=== PATIENT | male | born 2000 | race Caucasian/White ===

== ENCOUNTER 2024-03-03 00:17 | Emergency (ER) | payer OTHER, SELFPAY ==
[2024-03-03 00:21] VITALS: BP 141/62; PULSE 85; TEMP 36.5; O2SAT 100; BMI 23.4
--- NOTE | 2024-03-03 00:43 | ED_ITS ---
HPI HPI - Fall General Chief Complaint: Fall Stated Complaint: FALL Time Seen by Provider: 03/03/24 00:39 Source: patient Mode of arrival: ambulance Limitations: no limitations History of Present Illness HPI Narrative: patient states he was walking down the trail. Started raining and he slid down the ditch. injured his left ankle and schmitt. Injury about 5 hours ago. Was able to walk to the [employer] [place] [employer]. Now presents here with left ankle and schmitt pain. He denies other injury. 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 Common normals: normocephalic and head/scalp atraumatic Eye Common normals: EOMs intact bilaterally and conjunctivae normal Respiratory Common normals: normal respiratory effort, no retractions, no use of accessory muscles and clear to auscultation bilaterally Cardio Common normals: regular rate and regular rhythm Extremity Other: left ankle tender. mild swelling Neuro Common normals: oriented x3, CN's II-XII intact bilaterally, moves all extremities and no focal motor deficits Psych Appearance: grossly normal Course Vital Signs Vital signs: Vital Signs Temperature 97.7 F 03/03/24 00:21 Pulse Rate 85 03/03/24 00:21 Respiratory Rate 16 03/03/24 00:21 Blood Pressure 141/62 03/03/24 00:21 Pulse Oximetry 100 03/03/24 00:21 Oxygen Delivery Method Room Air 03/03/24 00:21 Temperature 97.9 F 03/03/24 05:04 Pulse Rate 82 03/03/24 05:04 Respiratory Rate 16 03/03/24 05:04 Blood Pressure 120/72 03/03/24 05:04 Pulse Oximetry 100 03/03/24 05:04 Oxygen Delivery Method Room Air 03/03/24 05:04 MDM - Fall MDM Narrative Medical decision making narrative: patient presents with complaint of left ankle /distal schmitt pain. he describes sliding and injuring his left ankle/schmitt. Does have mild tenderness. xrays neg for fracture patient treated with motrin and informed of working diagnosis of sprain left ankle/schmitt area Imaging Data Chest x-ray: Radiologist's impression: ITS Impressions Ankle X-Ray 03/03/24 01:11 IMPRESSION: 1. No acute fracture or dislocation of the left tibia or fibula or left ankle is seen. If pain persists, repeat radiographs are recommended in 7-10 days. 2. There are a couple small radiodensities within the soft tissues at the plantar aspect of the left calcaneal tuberosity. Please correlate for retained foreign bodies. Electronically authenticated by: Zohra RICHARDS Date: 03/03/2024 03:33 Tibia/Fibula X-Ray 03/03/24 01:11 IMPRESSION: 1. No acute fracture or dislocation of the left tibia or fibula or left ankle is seen. If pain persists, repeat radiographs are recommended in 7-10 days. 2. There are a couple small radiodensities within the soft tissues at the plantar aspect of the left calcaneal tuberosity. Please correlate for retained foreign bodies. Electronically authenticated by: Zohra RICHARDS Date: 03/03/2024 03:33 Discharge Plan Discharge Chief Complaint: Fall Clinical Impression: High ankle sprain of left lower extremity Patient Disposition: Home, Self-Care Prescriptions / Home Meds: No Action No Known Home Medications Print Language: Martiniquais Instructions: Sprain (ED), Leg Sprain (ED) Additional Instructions: continue motrin or similar for pain and follow up with your doctor next week for recheck Referrals: Physician,Non-Staff, MD [Primary Care Provider] - 1 week Discharge Date/Time: 03/03/24 05:13
--- NOTE | 2024-03-03 00:54 | PC.NURSE ---
Pt states that he left his apartment near the [facility] 4 days ago and is walking to [place]. He relates a hx of taking trazadone and risperidol a long time ago but I haven't taken these meds in years . He denies suicidal thoughts and homicidal thoughts. Relates that he is currently homeless. Upon removal of socks, it appears that he has trench foot--the skin is white on the sole and there appears to be breaks in the skin in between the toes. Currently, he is A & O x 4.
--- NOTE | 2024-03-03 01:11 | XR_ITS ---
The [address] [address] Patient Name: RIC BOCANEGRA MRN: [id number] date: 2000 Sex: M Assigned Patient Location: ER Current Patient Location: ER Accession/Order Number: [id number] Exam Date: 03/03/2024 01:17 Report Date: 03/03/2024 03:33 At the request of: IDRIS MCKEE Procedure: XR tibia fibula LT 2V EXAM: XR ankle LT min 3V, XR tibia fibula LT 2V HISTORY: injury COMPARISON: None. TECHNIQUE: 2 views of the left tibia and fibula and 3 views of the left ankle were obtained. FINDINGS: No acute fracture or dislocation is seen. The joint spaces are preserved. There is no significant left knee or left ankle joint effusion. The ankle mortise is congruent. There are a couple radiopaque densities within the soft tissues at the plantar aspect of the calcaneal tuberosity. XR/XR tibia fibula LT 2V IMPRESSION: 1. No acute fracture or dislocation of the left tibia or fibula or left ankle is seen. If pain persists, repeat radiographs are recommended in 7-10 days. 2. There are a couple small radiodensities within the soft tissues at the plantar aspect of the left calcaneal tuberosity. Please correlate for retained foreign bodies. Electronically authenticated by: Zohra RICHARDS Date: 03/03/2024 03:33
--- NOTE | 2024-03-03 01:11 | XR_ITS ---
The [address] [address] Patient Name: RIC BOCANEGRA MRN: [id number] date: 2000 Sex: M Assigned Patient Location: ER Current Patient Location: ER Accession/Order Number: [id number] Exam Date: 03/03/2024 01:17 Report Date: 03/03/2024 03:33 At the request of: IDRIS MCKEE Procedure: XR ankle LT min 3V EXAM: XR ankle LT min 3V, XR tibia fibula LT 2V HISTORY: injury COMPARISON: None. TECHNIQUE: 2 views of the left tibia and fibula and 3 views of the left ankle were obtained. FINDINGS: No acute fracture or dislocation is seen. The joint spaces are preserved. There is no significant left knee or left ankle joint effusion. The ankle mortise is congruent. There are a couple radiopaque densities within the soft tissues at the plantar aspect of the calcaneal tuberosity. XR/XR ankle LT min 3V IMPRESSION: 1. No acute fracture or dislocation of the left tibia or fibula or left ankle is seen. If pain persists, repeat radiographs are recommended in 7-10 days. 2. There are a couple small radiodensities within the soft tissues at the plantar aspect of the left calcaneal tuberosity. Please correlate for retained foreign bodies. Electronically authenticated by: Zohra RICHARDS Date: 03/03/2024 03:33
--- NOTE | 2024-03-03 02:00 | PC.NURSE ---
Feet are improved in appearance since left [employer]. Less white in color. Hot meal given to pt.
--- NOTE | 2024-03-03 02:58 | PC.NURSE ---
Pt is resting quietly with lights dimmed. Ate 100% of dinner. Emptied 400 ml of clear yellow urine from urinal. Left undisturbed.
[2024-03-03] MEDS: IBUPROFEN 400 MG TABLET 800 MG PO (05:00)
[2024-03-03 05:04] VITALS: BP 120/72; PULSE 82; TEMP 36.6; O2SAT 100
== END 2024-03-03 05:13 | disposition home or self-care (01) ==
PROVIDERS: Emergency Provider Internal Medicine
DX: S93.402A Sprain of unspecified ligament of left ankle, initial encounter (principal); W01.0XXA Fall on same level from slipping, tripping and stumbling without subsequent striking against object, initial encounter
CPT/HCPCS: 73590; 73610; 99283